=== PATIENT | male | born 1950 | race Asian ===

== ENCOUNTER → 2019-05-15 16:30 | Outpatient (BNVA) | payer MEDICARE, OTHER, SELFPAY | PROVIDERS: Family Provider Family Medicine; PCP Family Medicine; Referring Provider Family Medicine; Visit Provider Family Medicine | DX: K58.9 Irritable bowel syndrome, unspecified (principal); G47.9 Sleep disorder, unspecified; R09.81 Nasal congestion | CPT/HCPCS: 80053; 82784; 83516; 84443; 85025; 85651 ==

== ENCOUNTER → 2019-05-19 13:09 | Outpatient (BNVA) | payer MEDICARE, OTHER, SELFPAY | PROVIDERS: Family Provider Family Medicine; PCP Family Medicine; Visit Provider Family Medicine | DX: K58.9 Irritable bowel syndrome, unspecified (principal) | CPT/HCPCS: G0328 ==

== ENCOUNTER 2019-06-17 11:00 | Outpatient (CLI) | payer MEDICARE, OTHER, SELFPAY | END 2019-06-17 11:01 | disposition home or self-care (01) | LOC: SLEEP 06-18 10:15 | PROVIDERS: Family Provider Family Medicine; PCP Family Medicine; Visit Provider Family Medicine | DX: G47.10 Hypersomnia, unspecified (principal); R53.83 Other fatigue | CPT/HCPCS: G0399 ==

== ENCOUNTER 2019-06-27 08:50 | Outpatient (CLI) | payer MEDICARE, OTHER, SELFPAY ==
--- NOTE | 2019-06-27 08:00 | US_ITS ---
WS: [id number] Abdomen ultrasound, 06/27/2019 Clinical Data: liver enlargement Comparison: None. Findings: The pancreas shows no cyst, pseudocyst or evidence of pancreatitis, but it was partly obscured by ove rlying bowel gas. The liver shows no cysts, masses or dilated intrahepatic ducts. The liver showed fatty infiltration a nd measured 15.18 cm. The gallbladder has no stones or sludge. The wall measures 2.3 mm with no pericholecystic fluid. The common bile duct is 5.2 mm and no intraductal abnormalities are noted. There was an area of focal fat adjacent to the gallbladder wall. The right kidney is 11.9 cm. No cysts, masses or hydronephrosis is seen. The left kidney is 11.1 cm. No cysts, masses or hydronephrosis is seen. The abdominal aorta is not dilated and the inferior vena cava has normal flow. No vascular abnormalit ies are seen. The spleen measures 11.3 cm and there are no intrasplenic masses are capsular abnormalities. US/US abdomen complete* [id number] Impression: Negative abdomen ultrasound.
== END 2019-06-27 08:51 | disposition home or self-care (01) ==
LOC: RAD 08:57
PROVIDERS: Family Provider Family Medicine; PCP Family Medicine; Visit Provider Family Medicine
DX: R16.0 Hepatomegaly, not elsewhere classified (principal)
CPT/HCPCS: 76700

== ENCOUNTER → 2019-09-17 09:32 | Outpatient (BNVA) | payer MEDICARE, OTHER, SELFPAY | PROVIDERS: Family Provider Family Medicine; PCP Family Medicine; Visit Provider Family Medicine | DX: E11.9 Type 2 diabetes mellitus without complications (principal); Z79.4 Long term (current) use of insulin; F41.8 Other specified anxiety disorders | CPT/HCPCS: 80053; 80061; 83036; 85025 ==

== ENCOUNTER 2019-10-20 13:31 | Outpatient (CLI) | payer MEDICARE, OTHER, SELFPAY ==
--- NOTE | 2019-10-20 13:38 | XR_ITS ---
WS: [id number] KNEE RIGHT TECHNIQUE: 3 views of the right knee CLINICAL INFORMATION: right knee pain COMPARISON: None. FINDINGS: Normal anatomic alignment. Mild degenerative arthritis right knee. Chondrocalcinosis. Hypertrophic ch anges along the joint line. Vascular calcification. Hypertrophic patella. Mild soft tissue edema. XR/XR knee RT 3V* [id number] IMPRESSION: 1. Mild degenerative arthritis with medial and lateral compartment narrowing. 2. Chondrocalcinosis. 3. Hypertrophic patella. 4. No acute fractures.
== END 2019-10-20 13:32 | disposition home or self-care (01) ==
LOC: RADWPI 13:35
PROVIDERS: Family Provider Family Medicine; PCP Family Medicine; Visit Provider Family Medicine
DX: M25.561 Pain in right knee (principal); M17.11 Unilateral primary osteoarthritis, right knee; M11.261 Other chondrocalcinosis, right knee
CPT/HCPCS: 73562

== ENCOUNTER → 2020-02-02 08:46 | Outpatient (BNVA) | payer MEDICARE, OTHER, SELFPAY | PROVIDERS: Family Provider Family Medicine; PCP Family Medicine; Visit Provider Psychiatry & Neurology Psychiatry | DX: F41.8 Other specified anxiety disorders (principal); F33.1 Major depressive disorder, recurrent, moderate; F41.1 Generalized anxiety disorder | CPT/HCPCS: 99204 ==

== ENCOUNTER → 2020-02-18 09:21 | Outpatient (BNVA) | payer MEDICARE, OTHER, SELFPAY | PROVIDERS: Family Provider Family Medicine; PCP Family Medicine; Visit Provider Family Medicine | DX: E11.9 Type 2 diabetes mellitus without complications (principal); Z79.4 Long term (current) use of insulin; E78.5 Hyperlipidemia, unspecified; I10 Essential (primary) hypertension | CPT/HCPCS: 80053; 80061; 82043; 83036; 85025; 87086 ==

== ENCOUNTER → 2020-03-04 07:54 | Outpatient (BNVA) | payer MEDICARE, OTHER, SELFPAY | PROVIDERS: Family Provider Family Medicine; PCP Family Medicine; Visit Provider Psychiatry & Neurology Psychiatry | DX: F41.1 Generalized anxiety disorder (principal); F33.1 Major depressive disorder, recurrent, moderate | CPT/HCPCS: 99213 ==

== ENCOUNTER → 2020-05-13 10:32 | Outpatient (BNVA) | payer MEDICARE, OTHER, SELFPAY | PROVIDERS: Family Provider Family Medicine; PCP Family Medicine; Visit Provider Psychiatry & Neurology Psychiatry | DX: F41.1 Generalized anxiety disorder (principal); F33.1 Major depressive disorder, recurrent, moderate | CPT/HCPCS: 99213 ==

== ENCOUNTER → 2020-05-20 08:55 | Outpatient (BNVA) | payer MEDICARE, OTHER, SELFPAY | PROVIDERS: Family Provider Family Medicine; PCP Family Medicine; Visit Provider Family Medicine | DX: E11.9 Type 2 diabetes mellitus without complications (principal); Z79.4 Long term (current) use of insulin; G25.81 Restless legs syndrome | CPT/HCPCS: 80053; 82728; 83036; 83550; 85025 ==

== ENCOUNTER → 2020-06-23 08:07 | Outpatient (BNVA) | payer MEDICARE, OTHER, SELFPAY | PROVIDERS: Family Provider Family Medicine; PCP Family Medicine; Visit Provider Psychiatry & Neurology Psychiatry | DX: F41.1 Generalized anxiety disorder (principal); F33.1 Major depressive disorder, recurrent, moderate | CPT/HCPCS: 99213 ==

== ENCOUNTER → 2020-08-11 14:53 | Outpatient (BNVA) | payer MEDICARE, OTHER, SELFPAY | PROVIDERS: Family Provider Family Medicine; PCP Family Medicine; Referring Provider Family Medicine; Visit Provider Specialist | DX: M79.642 Pain in left hand (principal); M79.641 Pain in right hand; M19.042 Primary osteoarthritis, left hand; M19.041 Primary osteoarthritis, right hand | CPT/HCPCS: 73130 ==

== ENCOUNTER → 2020-08-16 08:29 | Outpatient (BNVA) | payer MEDICARE, OTHER, SELFPAY | PROVIDERS: Family Provider Family Medicine; PCP Family Medicine; Visit Provider Specialist | DX: Z01.812 Encounter for preprocedural laboratory examination (principal); Z20.822 Contact with and (suspected) exposure to COVID-19 | CPT/HCPCS: 87635 ==

== ENCOUNTER 2020-08-20 06:42 | Day surgery (SDC) | payer MEDICARE, OTHER, SELFPAY ==
[2020-08-16 17:01] VITALS: BMI 29.0
--- NOTE | 2020-08-20 07:03 | P.HPUD_ITS ---
Surgery/Procedure H&P Update DATE OF PROCEDURE: August 20, 2020 DATE H&P PERFORMED: 08/12/20 H&P UPDATE INFORMATION: I have reviewed H&P completed within last 30 days, I have examined patient prior to procedure, No changes to prior documentation and H&P is in [facility] [place] EMR on date indicated PREOP DIAGNOSIS: Left index trigger finger PLANNED PROCEDURE: Operation Date: 08/20/20 08:15 Proposed Procedures p Left Index Trigger Finger Release 39286 M65.30(Left) - Nicole Villa MD Related Problem List Diagnoses (1) Trigger finger, left index finger:
[2020-08-20 07:05] VITALS: BP 131/74; PULSE 77; RESP 18; TEMP 37; O2SAT 97
[2020-08-20 07:19] LABS: Glucose Point of Care 168 mg/dL (70-110)
[2020-08-20] MEDS: sodium chloride 0.9% 1,000 ML 30 ML IV (07:24)
[2020-08-20] MEDS: acetaminophen 1,000 MG/100 ML PIGGYBACK 400 MG IV (07:25)
[2020-08-20] MEDS: CELEcoxib 200 mg Capsule 400 MG PO (07:27)
--- NOTE | 2020-08-20 07:41 | ANES.PREANE2 ---
Pre-Anesthetic Assessment Pre-Anesthetic Assessment: Height/Weight: Height 1.68 m Weight 81.647 kg Temp Pulse Resp BP Pulse Ox 98.6 F 77 18 131/74 97 08/20/20 07:05 08/20/20 07:05 08/20/20 07:05 08/20/20 07:05 08/20/20 07:05 Preop Diagnosis: Left index trigger finger Proposed Procedure: Operation Date: 08/20/20 08:15 Proposed Procedures p Left Index Trigger Finger Release 21930 M65.30(Left) - Nicole Villa MD Was Beta Belinda taken within 24 hours: N/A Was Clonidine taken within 24 hours: N/A Last intake: Intake Last Liquid Date 08/19/20 Last Liquid Time 16:30 Last Solid Date 08/19/20 Last Solid Time 16:30 Social: Social History: No alcohol and No tobacco Exam: Pre-Anes Outpt Exam: alert, oriented x 3, clear to auscultation bilaterally and regular rate & rhythm Airway: Submandibular: WNL Cervical ROM: WNL MP: 2 Dentition: Full Metabolic: Metabolic: DM and Morbid obesity Musc/skel: Musc/skel: Lower Back Pain Anesthetic Plan: ASA status: 3 Anesthesia: MAC and Regional (specify below) (Darnell clinton) Risk of > 500 ml blood loss (7ml/kg in children): No Meds/Allergies Current Medications: Current Medications Generic Name Dose Route Start Last Admin Trade Name Freq PRN Reason Stop Dose Admin Sodium Chloride 1,000 mls @ 30 ml s/hr 08/20/20 06:45 08/20/20 07:24 Sodium Chloride 0.9% IV 08/21/20 06:44 30 mls/hr .Q24H FRED Administration PFSH Anesthesia PFSH: Medical History Benign essential HTN Dyslipidemia Fusion of lumbar spine Hypertension Insomnia Trigger finger Type 2 diabetes mellitus, with long-term current use of insulin Surgical History History of back surgery History of thumb surgery Family History Other Dementia Diabetes Social History Smoking and tobacco status: never smoked Second hand smoke exposure: No Alcohol intake: current Alcohol intake frequency: holidays/special occasions only Current gender identity: Male Agree to transfusion: Yes (06/11/2019) Data Anesthesia Other Labs: Laboratory Results - last 48 hr 08/20/20 07:15 POC Glucose 168 H Cardiac Studies: No Data to Display
[2020-08-20 09:01] VITALS: BP 157/97; PULSE 70; RESP 18; TEMP 36.4; O2SAT 100
[2020-08-20 09:05] VITALS: BP 167/73; PULSE 62; RESP 16; O2SAT 98
[2020-08-20 09:11] VITALS: BP 164/77; PULSE 65; RESP 18; TEMP 36.2; O2SAT 98
[2020-08-20 09:16] VITALS: BP 153/61; PULSE 64; RESP 18; TEMP 36.2; O2SAT 97
--- NOTE | 2020-08-20 09:30 | P.OP_ITS ---
Operative Report Date of procedure: August 20, 2020 Pre-op Diagnosis: Left index trigger finger Post-op diagnosis: same Procedure Done: Left index trigger finger release Specimens removed/disposition: None Pathology: none sent Surgeon: Nicole Villa Commercial Production Editor: None Anesthesia: MAC (with [place] Block) Estimated blood loss (mL): 0 Tourniquet time (min): 28 Tourniquet time: 250 mmHg IV fluids (mL): 700 Urine output (mL): 0 Urine output: No Gonzalez Complications: None Findings: Triggering Condition: stable Disposition: PACU (Then to same day for discharge home) Brief History: This 70-year-old gentleman presented with complaints of index finger triggering in the left hand. He previously has had trigger thumb release, so he understands the risks and benefits of the surgical procedure. He wishes to proceed. Procedure: Patient was brought to the operating theater. He was placed on the operating room table. A [place] block was administered without difficulty. Patient tolerated it well. Ancef 2 g as well as Ofrimev 1 g was administered pre-operatively. A tourniquet was placed high on the arm and was elevated for the [place] block. This followed exsanguination of the arm. Tourniquet time was 28 minutes at 250 mmHg. Surgical pause was performed prior to commencement of the surgical procedure. At the time of the surgical pause we identified the site and side of surgery. We also identified the patient's identity and appropriate administration of IV antibiotics. Following the surgical pause, an incision was made along the distal palmar crease beneath the index finger. Dissection continued through the skin to the subcutaneous tissues using a scalpel. Blunt dissection was then utilized to spread soft tissues and allow access to the A1 perri. It was then incised longitudinally and sharply using a knife. This was accomplished without difficulty and atraumatically. Once the A1 perri was released, tendons were brought up out of the wound and evaluated. There were no gross masses on the tendons. Tendons were returned to normal position. We then irrigated the wound and subsequently closed it with 3-0 nylon with an interrupted mattress type suture. Following closure of the wound, the wound was injected with bupivacaine plain into the subcutaneous tissues as a local anesthetic. Sterile dressing was then placed consisting of OpSite, fluffed fluffs, sterile soft roll, and an Luis wrap. The patient was returned to recovery in satisfactory condition. He will be discharged home to follow-up with me in the office. There were no complications and no specimens. Associated Problem List Diagnoses (1) Trigger finger, left index finger:
[2020-08-20 09:32] VITALS: BP 164/72; PULSE 72; RESP 18; TEMP 36.2; O2SAT 97
--- NOTE | 2020-08-20 16:22 | ANE.PACU2 ---
Inpatient post-anesthesia follow up: Airway intact: Yes Vital signs: Temperature 97.2 F Pulse Rate 72 Respiratory Rate 18 Blood Pressure 164/72 Pulse Oximetry 97 Oxygen Delivery Me thod Room Air Oxygen Flow Rate Fraction of Inspir ed Oxygen Hydration adequate: Yes Nausea and vomiting: No Pain level: 1 Mental status: Baseline
== END 2020-08-20 09:44 | disposition home or self-care (01) ==
PROVIDERS: PCP Family Medicine; Visit Provider Specialist
PROC: (CPT 26055; principal; 2020-08-20 08:05)
DX: M65.322 Trigger finger, left index finger (principal); E11.9 Type 2 diabetes mellitus without complications; E66.01 Morbid (severe) obesity due to excess calories; Z68.29 Body mass index [BMI] 29.0-29.9, adult; I10 Essential (primary) hypertension; E78.5 Hyperlipidemia, unspecified; Z95.5 Presence of coronary angioplasty implant and graft; Z79.4 Long term (current) use of insulin
CPT/HCPCS: 26055; 36416; 82962; 96365; J0690; J2250; J3490; J7030

== ENCOUNTER → 2020-08-31 09:10 | Outpatient (BNVA) | payer MEDICARE, OTHER, SELFPAY | PROVIDERS: PCP Family Medicine; Visit Provider Family Medicine | DX: E11.9 Type 2 diabetes mellitus without complications (principal); E78.5 Hyperlipidemia, unspecified; I10 Essential (primary) hypertension; Z79.4 Long term (current) use of insulin | CPT/HCPCS: 80053; 80061; 83036 ==

== ENCOUNTER → 2020-09-13 09:27 | Outpatient (BNVA) | payer MEDICARE, OTHER, SELFPAY | PROVIDERS: PCP Family Medicine; Visit Provider Psychiatry & Neurology Psychiatry | DX: F41.1 Generalized anxiety disorder (principal); F33.1 Major depressive disorder, recurrent, moderate | CPT/HCPCS: 99214 ==

== ENCOUNTER → 2021-02-10 15:38 | Outpatient (BNVA) | payer MEDICARE, OTHER, SELFPAY | PROVIDERS: PCP Family Medicine; Visit Provider Psychiatry & Neurology Psychiatry | DX: F41.1 Generalized anxiety disorder (principal); F33.1 Major depressive disorder, recurrent, moderate | CPT/HCPCS: 99214 ==

== ENCOUNTER → 2021-03-01 09:24 | Outpatient (BNVA) | payer MEDICARE, OTHER, SELFPAY | PROVIDERS: PCP Family Medicine; Visit Provider Family Medicine | DX: E11.9 Type 2 diabetes mellitus without complications (principal); Z79.4 Long term (current) use of insulin; E78.5 Hyperlipidemia, unspecified; I10 Essential (primary) hypertension | CPT/HCPCS: 80053; 80061; 82043; 83036; 85025 ==

== ENCOUNTER → 2021-05-06 09:52 | Outpatient (BNVA) | payer MEDICARE, OTHER, SELFPAY | PROVIDERS: PCP Family Medicine; Visit Provider Psychiatry & Neurology Psychiatry | DX: F41.1 Generalized anxiety disorder (principal); F33.1 Major depressive disorder, recurrent, moderate | CPT/HCPCS: 99214 ==

== ENCOUNTER → 2021-05-31 08:30 | Outpatient (BNVA) | payer MEDICARE, OTHER, SELFPAY | PROVIDERS: PCP Family Medicine; Visit Provider Family Medicine | DX: E11.9 Type 2 diabetes mellitus without complications (principal); Z79.4 Long term (current) use of insulin | CPT/HCPCS: 83036 ==

== ENCOUNTER → 2021-08-18 12:42 | Outpatient (BNVA) | payer MEDICARE, OTHER, SELFPAY | PROVIDERS: PCP Family Medicine; Visit Provider Psychiatry & Neurology Psychiatry | DX: F41.1 Generalized anxiety disorder (principal); F33.1 Major depressive disorder, recurrent, moderate | CPT/HCPCS: 99213 ==

== ENCOUNTER → 2021-08-30 08:11 | Outpatient (BNVA) | payer MEDICARE, SELFPAY | PROVIDERS: PCP Family Medicine; Visit Provider Family Medicine | DX: E11.9 Type 2 diabetes mellitus without complications (principal); Z79.4 Long term (current) use of insulin; R35.1 Nocturia; I10 Essential (primary) hypertension; E78.5 Hyperlipidemia, unspecified | CPT/HCPCS: 80053; 83036; 84153 ==

== ENCOUNTER → 2022-02-15 12:34 | Outpatient (BNVA) | payer MEDICARE, OTHER, SELFPAY | PROVIDERS: PCP Family Medicine; Visit Provider Family Medicine | DX: R19.7 Diarrhea, unspecified (principal) | CPT/HCPCS: 87506 ==

== ENCOUNTER → 2022-02-28 09:19 | Outpatient (BNVA) | payer MEDICARE, SELFPAY | PROVIDERS: PCP Family Medicine; Visit Provider Family Medicine | DX: I10 Essential (primary) hypertension (principal); E78.5 Hyperlipidemia, unspecified; E11.9 Type 2 diabetes mellitus without complications; R68.82 Decreased libido; R53.83 Other fatigue; Z79.4 Long term (current) use of insulin | CPT/HCPCS: 80053; 80061; 83036; 84403; 84443; 85025 ==

== ENCOUNTER 2022-08-30 09:09 | Outpatient (CLI) | payer MEDICARE, SELFPAY ==
--- NOTE | 2022-08-30 10:40 | XR_ITS ---
WS: [id number] XR hip RT 2-3V wo/w pel* [id number] REASON FOR EXAM: right hip pain FINDINGS: No fracture or focal bone lesion. Significant narrowing of the joint space with moderate subchondral sclerosis and osteophytosis of the acetabulum. Significant osteophytosis of the femoral head. XR/XR hip RT 2-3V wo/w pel* [id number] IMPRESSION: Significant osteoarthritis of the right hip.
--- NOTE | 2022-08-30 10:40 | XR_ITS ---
WS: [id number] XR cervical spine 3V* [id number] REASON FOR EXAM: neuropathy of bilateral hands FINDINGS: Mild reversal of the normal lordosis of the cervical spine. Normal odontoid. No significant focal vertebral body abnormality. Mild narrowing of the intervertebral disc spaces T1. Moderate anterior and uncinate osteophytosis C4- T1. 2.5 mm of anterolisthesis of C3 in relation to C4. XR/XR cervical spine 3V* [id number] IMPRESSION: Degenerative spondylosis as above.
[2022-08-30 11:14] LABS: Testosterone Total 142.4 ng/dL (193-740)
== END 2022-08-30 09:10 | disposition home or self-care (01) ==
PROVIDERS: PCP Family Medicine; Visit Provider Family Medicine
DX: E11.9 Type 2 diabetes mellitus without complications (principal); Z79.4 Long term (current) use of insulin; R79.89 Other specified abnormal findings of blood chemistry; R35.1 Nocturia; M16.11 Unilateral primary osteoarthritis, right hip; G54.2 Cervical root disorders, not elsewhere classified; M47.892 Other spondylosis, cervical region
CPT/HCPCS: 36415; 72040; 73502; 80053; 83036; 84153; 84403

== ENCOUNTER → 2022-10-09 08:24 | Outpatient (BNVA) | payer MEDICARE, SELFPAY | PROVIDERS: PCP Family Medicine; Referring Provider Family Medicine; Visit Provider Specialist | DX: M16.11 Unilateral primary osteoarthritis, right hip (principal) | CPT/HCPCS: 73502; 99214 ==

== ENCOUNTER → 2022-10-17 11:09 | Outpatient (BNVA) | payer MEDICARE, SELFPAY | PROVIDERS: PCP Family Medicine; Visit Provider Orthopaedic Surgery | DX: M47.22 Other spondylosis with radiculopathy, cervical region (principal); M54.9 Dorsalgia, unspecified | CPT/HCPCS: 72110; 99204 ==

== ENCOUNTER 2022-11-17 09:01 | Outpatient (CLI) | payer MEDICARE, SELFPAY ==
--- NOTE | 2022-11-17 09:30 | MR_ITS ---
WS: [id number] MRI CERVICAL SPINE NONCONTRAST TECHNIQUE: Sagittal T1, T2 and STIR imaging. Axial T2, gradient, and fiesta imaging. CLINICAL INFORMATION: neck pain COMPARISON: None. FINDINGS: Straightening of the normal cervical lordosis. Mild disc bulging C3-C4 C4-C5 and C5-C6. Slight alisha listhesis C3 on C4 and C4 on C5. Shallow central protrusion T1-T2. C2-C3: Mild facet arthropathy. Spinal canal and foramen are patent. C3-C4: Disc osteophyte complex with endplate ridging. Slight indentation on cervical cord. Mild centr al canal stenosis. Moderate facet arthropathy. Mild bilateral bony foraminal narrowing. C4-C5: Shallow central disc protrusion with slight indentation on cervical cord. Mild central canal s tenosis. Moderate facet arthropathy. Mild bilateral foraminal narrowing. C5-C6: Disc osteophyte complex with endplate ridging. Mild central canal stenosis. Moderate LEFT and no significant RIGHT foraminal narrowing. C6-C7: Mild disc bulging with slight effacement of ventral thecal sac. Mild LEFT and no RIGHT foramin al narrowing. C7-T1: Mild to moderate LEFT and no significant RIGHT foraminal narrowing. Spinal canal is patent. T1-T2: Slight anterolisthesis. Small central disc herniation with slight contact of the thoracic cord . Mild central canal stenosis. Mild to moderate LEFT and no significant RIGHT foraminal narrowing. Mo derate facet arthropathy. Visualized brain stem structures: Normal. Prevertebral soft tissues: Normal. MR/MR cervical spin wo con* [id number] IMPRESSION: 1. Straightening of the normal cervical lordosis with slight anterolisthesis C 3 on C4 and C4 on C5. 2. Mild central canal stenosis C3-C4, C4-C5, C5-C6. 3. Small central disc herniation T1-T2 with mild central canal stenosis. 4. Moderate LEFT C5-C6 bony foraminal narrowing. 5. Mild to moderate bony foraminal narrowing LEFT C3-C4, LEFT C4-C5 and LEFT C 6-C7.
== END 2022-11-17 09:02 | disposition home or self-care (01) ==
PROVIDERS: PCP Family Medicine; Visit Provider Orthopaedic Surgery
DX: M48.02 Spinal stenosis, cervical region (principal); M51.24 Other intervertebral disc displacement, thoracic region; M48.04 Spinal stenosis, thoracic region; M47.812 Spondylosis without myelopathy or radiculopathy, cervical region
CPT/HCPCS: 72141

== ENCOUNTER → 2022-12-07 09:52 | Outpatient (BNVA) | payer MEDICARE, SELFPAY | PROVIDERS: PCP Family Medicine; Visit Provider Physician Assistant | DX: M47.22 Other spondylosis with radiculopathy, cervical region (principal); M47.812 Spondylosis without myelopathy or radiculopathy, cervical region | CPT/HCPCS: 72040; 99213 ==

== ENCOUNTER 2022-12-21 07:19 | Outpatient (CLI) | payer MEDICARE, SELFPAY ==
--- NOTE | 2022-12-21 08:00 | CT_ITS ---
WS: [id number] CT CERVICAL SPINE TECHNIQUE: Noncontrast CT of the cervical spine with coronal and sagittal reformatted images. CLINICAL INFORMATION: nECK PAIN COMPARISON: MRI 11/17/2022 DLP: 358.[address] scans at [facility] use at least one of these dose optimization techniques: automated e xposure control; mA and/or kV adjustment per patient size (includes targeted exams where dose is matc hed to clinical indication); or iterative reconstruction. FINDINGS: Straightening of the normal cervical lordosis. Moderate spondylitic changes cervical spine. Ossificat ion of the nuchal ligament. Anterior hypertrophic changes mid and lower cervical spine. Slight alisha listhesis C3 on C4. C2-C3: Mild disc osteophytic ridging. Moderate facet arthropathy. Spinal canal and foramen are patent . C3-C4: Slight anterolisthesis. Disc osteophyte complex eccentric to the LEFT. Mild central canal sten osis. Moderate facet arthropathy. Mild RIGHT and no significant LEFT foraminal narrowing. C4-C5: Disc osteophyte complex with endplate ridging. Mild central canal stenosis with slight indenta tion on the cervical cord. Tiny central protrusion. Mild RIGHT and no significant LEFT foraminal narr owing. Moderate facet arthropathy. C5-C6: Disc osteophyte complex with endplate ridging. Moderate LEFT and mild RIGHT bony foraminal dajuan rowing. Moderate facet arthropathy and uncovertebral joint hypertrophy. C6-C7: Disc osteophyte complex with endplate ridging. Mild LEFT greater than RIGHT bony foraminal dajuan rowing. Mild to moderate facet arthropathy. Spinal canal is patent. C7-T1: No significant disc bulging. Spinal canal and foramen are patent. Visualized posterior nasopharynx: Normal. Prevertebral soft tissues: Normal. Intracranial vascular calcification. Moderate carotid bulb calcification LEFT greater than RIGHT. Thi s could be further evaluated with ultrasound. Lung apices appear well aerated. IMPRESSION: 1. Moderate spondylitic changes cervical spine with straightening of the normal cervical lordosis. S light anterolisthesis C3 on C4. 2. Mild central canal stenosis C3-C4 and C4-C5. Small central protrusion C4-5 with slight indentatio n on the cervical cord. 3. Mild to moderate bony foraminal narrowing worse at RIGHT C3-C4, RIGHT C4-C5, LEFT C5-C6 and LEFT C6-7. 4. Multilevel facet arthropathy worse at C3-C4 C4-C5 and C5-C6. 5. Dense carotid bulb calcification. This could be further evaluated ultrasound.
== END 2022-12-21 07:20 | disposition home or self-care (01) ==
PROVIDERS: PCP Family Medicine; Visit Provider Physician Assistant
DX: M47.22 Other spondylosis with radiculopathy, cervical region (principal); M48.02 Spinal stenosis, cervical region; I65.29 Occlusion and stenosis of unspecified carotid artery
CPT/HCPCS: 72125

== ENCOUNTER → 2022-12-26 09:45 | Outpatient (BNVA) | payer MEDICARE, SELFPAY | PROVIDERS: PCP Family Medicine | DX: R79.89 Other specified abnormal findings of blood chemistry (principal) | CPT/HCPCS: 84403 ==

== ENCOUNTER → 2023-01-02 07:42 | Outpatient (BNVA) | payer MEDICARE, SELFPAY | PROVIDERS: PCP Family Medicine; Visit Provider Orthopaedic Surgery | DX: M47.12 Other spondylosis with myelopathy, cervical region | CPT/HCPCS: 99214 ==

== ENCOUNTER → 2023-02-05 12:38 | Outpatient (BNVA) | payer MEDICARE, SELFPAY | PROVIDERS: PCP Family Medicine; Visit Provider Specialist | DX: M16.11 Unilateral primary osteoarthritis, right hip (principal) | CPT/HCPCS: 99214 ==

== ENCOUNTER → 2023-03-01 11:26 | Outpatient (BNVA) | payer MEDICARE, SELFPAY | PROVIDERS: PCP Family Medicine; Visit Provider Family Medicine | DX: E11.9 Type 2 diabetes mellitus without complications (principal); Z79.4 Long term (current) use of insulin | CPT/HCPCS: 80053; 80061; 82043; 83036; 85025 ==

== ENCOUNTER → 2023-03-05 11:46 | Outpatient (BNVA) | payer MEDICARE, SELFPAY | PROVIDERS: PCP Family Medicine; Referring Provider Specialist; Visit Provider Family Medicine | DX: Z01.818 Encounter for other preprocedural examination (principal) | CPT/HCPCS: 81000 ==

== ENCOUNTER → 2023-03-12 08:39 | Outpatient (BNVA) | payer MEDICARE, SELFPAY | PROVIDERS: PCP Family Medicine; Visit Provider Podiatrist Foot & Ankle Surgery | DX: B35.1 Tinea unguium (principal); G62.9 Polyneuropathy, unspecified; E11.42 Type 2 diabetes mellitus with diabetic polyneuropathy; Z79.4 Long term (current) use of insulin; Z79.84 Long term (current) use of oral hypoglycemic drugs | CPT/HCPCS: 11721; 99203 ==

== ENCOUNTER 2023-03-15 15:49 | Observation (INO) | payer MEDICARE, SELFPAY ==
[2023-03-15] VITALS (17 sets, daily range): BP systolic 82–171; BP diastolic 44–108; PULSE 74–100; RESP 12–22; TEMP 36.1–36.8; O2SAT 93–100; BMI 30.7; BMI 31.6
[2023-03-15] MEDS: sodium chloride 0.9% 1,000 ML 30 ML IV (09:34)
[2023-03-15 10:06] LABS: Glucose Point of Care 168 mg/dL (70-110)
--- NOTE | 2023-03-15 10:53 | ANES.PREANE2 ---
Pre-Anesthetic Assessment Height/Weight: Height 1.65 m Weight 83.915 kg Temp Pulse Resp BP Pulse Ox O2 Del Method 97.0 F L 74 18 171/83 95 Room Air 03/15/23 09:51 03/15/23 09:51 03/15/23 09:51 03/15/23 09:51 03/15/23 09:51 03/15/23 10:05 Operation Date: 03/15/23 11:20 Proposed Procedures p Total Hip Arthroplasty: RIGHT TOTAL HIP ARTHROPLASTY(Right) - Nicole Villa MD Familial anesthetic complications: None Was Beta Belinda taken within 24 hours: N/A Was Clonidine taken within 24 hours: N/A Last intake: Intake Last Liquid Date 03/14/23 Last Liquid Time 22:00 Last Solid Date 03/14/23 Last Solid Time 18:00 Social No alcohol and No tobacco Exam alert, oriented x 3, clear to auscultation bilaterally and regular rate & rhythm Airway Mallampati: Class II Dentition: full Metabolic Diabetes Mellitus and Hyperlipidemia Anesthetic Plan ASA status: 2 Anesthesia: Regional (specify below) Risk of > 500 ml blood loss (7ml/kg in children): No Medications/Allergies Home Medications Medication Instructions Recorded Confirmed Last Taken Type insulin syringe-needle U-100 0.3 #100 ea 02/28/22 03/12/23 Unknown Rx mL 30 gauge x 5/16 ([facility] Syringes) insulin lispro 100 unit/mL See Rx Instructions SUBCUT BID 08/29/22 03/14/23 03/14/23 Rx subcutaneous pen (Humalog KwikPen #135 mL (U-100) Insulin) tramadol 50 mg tablet 50 mg PO TID PRN pain #90 tabs 10/18/22 03/15/23 Unknown Rx testosterone cypionate 200 mg/mL 200 mg SUBCUT .q 14 days #2 mL 01/05/23 03/14/23 03/07/23 Rx intramuscular oil trazodone 100 mg tablet 400 mg PO .HS PRN insomnia #360 01/26/23 03/14/23 03/14/23 Rx tabs betamethasone, augmented 0.05 % 1 applic topical BID PRN skin 03/01/23 03/15/23 Unknown Rx topical ointment irritation #50 grams sildenafil (pulm.hypertension) 20 See Rx Instructions PO .COMPLEX 03/01/23 03/15/23 Unknown Rx mg tablet #30 tabs insulin detemir U-100 100 unit/mL 80 unit SUBCUT DAILY 03/05/23 03/14/23 03/14/23 History (3 mL) subcutaneous pen (Levemir FlexTouch U-100 Insulin) canagliflozin 100 mg tablet 100 mg PO DAILY #30 tabs 03/06/23 03/14/23 03/14/23 Rx (Invokana) metformin 500 mg tablet 500 mg PO BID #60 tabs 03/06/23 03/14/23 03/14/23 Rx atorvastatin 80 mg tablet 80 mg PO DAILY 03/14/23 03/14/23 03/14/23 History duloxetine 60 mg capsule,delayed 120 mg PO DAILY 03/14/23 03/14/23 03/14/23 History release valsartan 160 1 tab PO DAILY 03/14/23 03/14/23 03/14/23 History mg-hydrochlorothiazide 25 mg tablet Allergies Allergy/AdvReac Type Severity Reaction Status Date / Time cat dander Allergy Severe breaksout, Verified 03/15/23 09:50 swells eyes shut bupropion [From Wellbutrin] Allergy Intermediate N & V, Verified 03/15/23 09:50 lack of energy. [facility] Anesthesia Medical History Benign essential HTN COVID-19 Dyslipidemia Fusion of lumbar spine Hypertension Insomnia Trigger finger Type 2 diabetes mellitus, with long-term current use of insulin Surgical History History of back surgery History of thumb surgery Family History Other Dementia Diabetes Social History Smoking and tobacco/nicotine status: never used tobacco/nicotine Second hand smoke exposure: No Alcohol intake: current Alcohol intake frequency: holidays/special occasions only Alcohol type: beer and hard liquor Substance/Drug Use: former Current gender identity: Male Agree to transfusion: Yes (06/11/2019) Data Anesthesia Cardiac Studies: No Data to Display
--- NOTE | 2023-03-15 11:17 | P.HPUD_ITS ---
Surgery/Procedure H&P Update DATE OF PROCEDURE: March 15, 2023 DATE H&P PERFORMED: 03/05/23 H&P UPDATE INFORMATION: I have reviewed H&P completed within last 30 days, I have examined patient prior to procedure, No changes to prior documentation and H&P is in [facility] EMR on date indicated PLANNED PROCEDURE: Operation Date: 03/15/23 11:20 Proposed Procedures p Total Hip Arthroplasty: RIGHT TOTAL HIP ARTHROPLASTY(Right) - Nicole Villa MD Related Problem List Diagnoses (1) Primary osteoarthritis of right hip:
[2023-03-15] MEDS: acetaminophen 1,000 MG/100 ML PIGGYBACK 400 MG IV ×2 (11:28→20:27)
[2023-03-15] MEDS: gabapentin 300 mg Capsule PO (11:28)
[2023-03-15] MEDS: CELEcoxib 200 mg Capsule 400 MG PO (11:31)
[2023-03-15] MEDS: ceFAZolin 2,000 MG in sodium chloride 0.9% (plus) 50 ML 100 MG IV ×2 (11:35→23:13)
[2023-03-15] MEDS: ceFAZolin 1,000 mg SDV 1000 MG IRRIGATION (12:40)
[2023-03-15] MEDS: vancomycin 1,000 MG SDV 1000 MG XX (12:41)
--- NOTE | 2023-03-15 14:21 | P.OP_ITS ---
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 Flexion and abductor contracture Procedure done: Right total hip arthroplasty with adductor tenotomy through separate incision Implants: The [place] total hip system with a size 52 mm by E alpha code Trident II Tritanium acetabular shell with an MDM liner size 42 mm inner diameter by E alpha code.? A size 4 Accolade II 127? neck angle hip stem with a size 28 mm x +0 mm femoral head and a buddhism MDM X3 insert size 42E Specimens removed/disposition: Bone, disposed of Surgeon: Nicole Villa MD Farm Tractor Mechanic: Katie Toure NP, whose expertise was required for patient positioning, exposure, retraction during the case, placement of the prosthesis, and placement of the prosthesis Anesthesia: General (Per ET tube, ASA 2) Estimated blood loss (mL): 200 IV fluids (mL): 1,200 Urine output (mL): 500 Complications: None Findings: Significant flexion contracture even under anesthesia. Adductor contracture. Flexion contracture of the hip. Severe degenerative osteoarthritis with large osteophytes. The hip was stable at 90 degrees of flexion with 30 degrees of abduction and 40 degrees of internal rotation. It was stable to external rotation. It was still quite tight following the surgical procedure. Condition: stable Disposition: PACU (Then to floor for postoperative rehabilitation and pain management) Brief History: This is a 72-year-old gentleman who presented to my office with complaints of severe right hip pain. While sitting in his chair, he had significant pain, however, when he bears weight, the patient's pain level became much higher. The hip pain interfered with his activities of daily living. He also was beginning to develop numbness and tingling secondary to the way that he walked. In the office, patient was evaluated. Questions were asked and answered. Consents were signed. Procedure: Patient was brought to the operating theater.? He was transferred to the operating room table and subsequently administered a general anesthesia per ET tube, ASA 2.? Following administration of adequate anesthesia, the patient was placed in full lateral position and held in position with a pegboard.? The patient's right lower extremity was then prepped and draped in usual fashion utilizing DuraPrep.? It was draped free, but this draping was quite difficult secondary to the severe contractures the patient had.? Following prepping and draping, a surgical pause was performed.? At the time of surgical pause, we identified the site and side of surgery.? We also identified the patient and preoperative surgical markings.?The patient's operative leg was compared to the opposite leg.? Confirmation was made of equipment availability.? Additionally, the patient's preoperative IV antibiotic, Ancef 2 g, and TXA administration was confirmed as well.? X-rays were also reviewed. Following the surgical pause, an incision was made centering over the patient's greater trochanter continuing proximally and distally as necessary to allow access to the hip joint.? Dissection continued through skin and soft tissues using a scalpel, and hemostasis was obtained using electrocautery. The tensor fascia marily was identified and incised longitudinally.? Sciatic nerve was identified and protected throughout the surgical procedure.? A Charnley U retractor was placed after the tensor fascia marily had been incised longitudinally, and the sciatic nerve had been identified.? The hip was internally rotated, and the piriformis muscle was identified and tagged. Piriformis muscle along with the remaining short external rotators were then incised from the posterior aspect of the hip joint.? These were retracted posteriorly.? The capsule was entered in a T-type fashion with the edges being tagged, and subsequently the hip was dislocated.? Dislocation of the hip was quite difficult secondary to large osteophytes superiorly and posteriorly on the acetabulum. Also, there was significant soft tissue contracture anteriorly. Following dislocation of the femoral head, femoral neck osteotomy was accomplished, and subsequently, the labrum was excised.? The head was measured, and reaming was begun with deepening of the acetabulum. We then evaluated the acetabulum. The femur was retracted anteriorly.? Soft tissues were retracted, and the labrum was removed further.? We then began reaming.? Once the femoral head was removed, there was noted to be significant loss of cartilage over the head with the previously noted deformity and within the acetabulum.? We reamed to a size 51 to allow for a size 52 acetabular shell.? The acetabulum was impacted into position.? The MDM liner was then impacted into position with care being taken to assure it seated appropriately.? It was noted that the acetabulum matched the bony anatomy.? The cup was noted to seat nicely and had good fixation upon impact. Attention was directed to the proximal femur.? The proximal femur was lifted out of the wound.? A canal finder was passed after the box chisel.? The reamer was used to lateralize.? We then began broaching. We broached sequentially and had excellent fit and fill with the size 4 broach. Initially, we did try with a size 5 broach, however, the leg was much too long and tight secondary to the contractures. Therefore, we placed a size 4 broach and resected further femoral neck. The size 4 broach was noted to fit quite nicely. A trial reduction was attempted with a -4 mm femoral head initially, but this was felt to not give the stability desired. Therefore, we placed the +0 mm femoral head in position, and we obtained the above-noted stabilities. Leg lengths were felt to be essentially equal, but this was difficult to evaluate secondary to the severe adductor tightness. Therefore, trial components were removed after the hip was dislocated.? The size 4 Accolade II 127? neck angle stem was impacted into position without difficulty and onto this was placed a +0 mm x 28 mm femoral head which had been assembled into the MDM insert size 42E.? With a +0 mm femoral head, we had the above-noted stability.? The stem was noted to seat nicely prior to placement of the femoral head.? The wound was copiously irrigated with 20 mL of Betadine and 500 mL of normal saline mixed together.? Subsequently, we suctioned this out and irrigated the wound copiously with lactated Ringer's.? At this time, with all components in appropriate position, the hip was reduced.? Following reduction of the prosthesis once again, we confirmed the stability of the hip.? Leg lengths were also felt to be satisfactory. Being satisfied with the prosthesis, attention was directed to closure.? Closure was accomplished with 0 Vicryl in the capsular tissues.? Piriformis was reattached with 0 Vicryl as well.? Tensor fascia marily was closed with 0 Vicryl in an interrupted fashion.? The subcutaneous tissues were closed with 2-0 Monocryl.? Vancomycin powder and a Gelfoam thrombin mixture was placed into the wound as well.? The skin was closed with a running 3-0 Monocryl followed by Dermabond Cristo followed by OpSite.? The patient was placed in an abduction pillow. Following this closure, the patient was turned onto his back. The groin area over the adductor tendon was palpated. The tendon was noted to be quite tight. Therefore, this area was prepped, and a 12 blade was used to perform a adductor tenotomy through separate incision. Following this, the leg was noted to abduct much easier, and stability was not tested at this time. A sterile 4 x 4 was placed in the area and the patient was returned to recovery room in a satisfactory condition for postoperative rehabilitation and pain management. He will be discharged to the floor. There were no complications and no specimens. Related Problem List Diagnoses (1) Primary osteoarthritis of right hip: (2) Contracture of adductor muscle of hip: (3) Flexion contracture of right hip:
--- NOTE | 2023-03-15 14:52 | XR_ITS ---
WS: [id number] Exam: XR pelvis 1-2V* [id number] Date/Time of Exam: 03/15/2023 2:52 PM Reason For Exam: S/P MORALES Limited AP view of the lower pelvis shows a RIGHT total hip replacement. Postoperative changes in the adjacent soft tissues. A Gonzalez catheter is noted. IMPRESSION: 1. RIGHT total hip arthroplasty.
[2023-03-15] MEDS: HYDROmorphone 1 mg/mL INJ 1 mL 0.5 MG IVP (15:20)
[2023-03-15] MEDS: midazolam 1 mg/mL INJ 2 mL 2 MG IVP (15:23)
[2023-03-15] MEDS: oxyCODONE 5 mg IR Tab/Cap PO (16:28)
[2023-03-15 17:38] LABS: Glucose Point of Care 343 mg/dL (70-110)
[2023-03-15] MEDS: insulin lispro 100 unit/1 mL SUBCUT ×2 (17:42→20:45)
[2023-03-15] MEDS: iron polysaccharide complex 150 mg Capsule PO (17:42)
[2023-03-15] MEDS: HYDROcodone-acetaminophen 10-325 mg Tablet 1 TAB PO ×2 (17:43→21:37)
[2023-03-15] MEDS: metformin 500 mg Tablet PO (17:43)
[2023-03-15] MEDS: sennosides-docusate Tablet 2 TAB PO (17:43)
[2023-03-15] MEDS: calcium carbonate 500 mg Chew Tablet 1000 MG PO (17:43)
--- NOTE | 2023-03-15 18:14 | PC.NURSE ---
SHIFT SUMMARY Patient was in a lot of pain when arriving to the floor. This nurse tried medication and position changes. Dr. Villa notified and pain medication changed to hydrocodone. Patient now sitting up more comfortably in the bed, eating ice cream, with at bedside. Surgical incision c/d/i. Dr. Villa updated at 1800.
[2023-03-15] MEDS: chlorhexidine gluconate 0.12% Btl 473 mL 30 ML MUCOUS MEM (20:44)
[2023-03-15] MEDS: tranexamic acid 1,000 MG/100 ML PREMIX 12.5 MG IV (20:44)
[2023-03-15 20:48] LABS: Glucose Point of Care 248 mg/dL (70-110)
[2023-03-15] MEDS: trazodone 100 mg Tablet 400 MG PO (21:37)
[2023-03-15] MEDS: CELEcoxib 200 mg Capsule PO (23:13)
[2023-03-16] MEDS: HYDROcodone-acetaminophen 10-325 mg Tablet 1 TAB PO ×2 (02:39→11:07)
[2023-03-16 03:09] VITALS: BP 96/46; PULSE 81; RESP 16; TEMP 36.8; O2SAT 93
[2023-03-16] MEDS: acetaminophen 1,000 MG/100 ML PIGGYBACK 400 MG IV (05:23)
[2023-03-16 05:27] VITALS: BP 104/59
[2023-03-16 06:12] LABS: Basophils % 0.1 %; Hematocrit 32.1 % (37-53); Lymphocytes # 1.6 10^3/uL (0.8-4.8); Lymphocytes % 14.3 %; Mean Corpuscular Hemoglobin 30.3 pg (27-33); Mean Corpuscular Volume 91.7 fl (82-101); Mean Platelet Volume 8.9 fL (7.4-10.4); Monocytes # 0.8 10^3/uL (0.2-0.9); Neutrophils # 8.97 10^3/uL (1.8-7.7); Neutrophils % 78.3 %; Nucleated Red Blood Cells % 0 %; Platelet Count 220 10^3/cmm (157-399); Red Cell Distribution Width 12.1 % (12.1-15.1); White Blood Count 11.46 10^3/uL (3.29-11.43)
[2023-03-16 06:21] LABS: Glucose Point of Care 212 mg/dL (70-110)
[2023-03-16] MEDS: ceFAZolin 2,000 MG in sodium chloride 0.9% (plus) 50 ML 100 MG IV (06:29)
[2023-03-16 06:32] LABS: Anion Gap 15.8 (5-19); Blood Urea Nitrogen 22 mg/dL (8-23); Calcium 8.1 mg/dL (8.5-10.5); Carbon Dioxide 26 mmol/L (22-29); Chloride 98 mmol/L (98-107); Glomerular Filtration Rate 54.6 mL/min (90-130); Glucose 201 mg/dL (65-115); Osmolality Calculated 291 mOsm/kg (285-295); Potassium 3.8 mmol/L (3.5-5.1); Sodium 136 mmol/L (136-145)
[2023-03-16] MEDS: TRAMadol 50 mg Tablet PO ×2 (06:41→12:45)
[2023-03-16 07:38] VITALS: BP 115/58; PULSE 78; RESP 17; TEMP 36.8; O2SAT 97
[2023-03-16] MEDS: iron polysaccharide complex 150 mg Capsule PO (08:23)
[2023-03-16] MEDS: calcium carbonate 500 mg Chew Tablet 1000 MG PO (08:23)
[2023-03-16] MEDS: insulin lispro 100 unit/1 mL SUBCUT ×2 (08:23→11:23)
[2023-03-16] MEDS: duloxetine 60 mg Capsule 120 MG PO (08:24)
[2023-03-16] MEDS: atorvastatin 40 mg Tablet 80 MG PO (08:24)
[2023-03-16] MEDS: metformin 500 mg Tablet PO (08:24)
[2023-03-16] MEDS: sennosides-docusate Tablet 2 TAB PO (08:24)
[2023-03-16] MEDS: cholecalciferol (vitamin D3) 1,000 unit Tablet 1000 UNIT PO (08:24)
[2023-03-16] MEDS: multivitamin therapeutic Tablet 1 TAB PO (08:25)
[2023-03-16] MEDS: aspirin 325 mg EC Tablet PO (08:25)
[2023-03-16] MEDS: chlorhexidine gluconate 0.12% Btl 473 mL 30 ML MUCOUS MEM ×2 (08:28→12:45)
[2023-03-16] MEDS: insulin glargine 100 units/1 mL 80 UNIT SUBCUT (08:57)
[2023-03-16 11:04] LABS: Glucose Point of Care 232 mg/dL (70-110)
[2023-03-16] MEDS: CELEcoxib 200 mg Capsule PO (11:23)
[2023-03-16 11:49] VITALS: BP 122/69; PULSE 79; RESP 18; TEMP 36.4; O2SAT 96
--- NOTE | 2023-03-16 12:59 | PC.SOCIAL ---
IMM Update pg 2 of IMM not updated @ this time as patient is currently in observation status.
--- NOTE | 2023-03-16 14:04 | P.DS_ITS ---
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 A size 4 Accolade II 127? neck angle hip stem with a size 28 mm x +0 mm femoral head and a jewish MDM X3 insert size 42E (2) Primary osteoarthritis of right hip: Status: Acute (3) Contracture of adductor muscle of hip: Status: Acute (4) Flexion contracture of right hip: Status: Acute Reason for Visit Reason for Visit: 67675 M16.0 Brief History: This is a 72-year-old gentleman who presented to my office with complaints of severe right hip pain.? While sitting in his chair, he had significant pain, ho wever, when he bears weight, the patient's pain level became much higher.? The hip pain interfered with his activities of daily living.? He also was beginning to develop numbness and tingling secondary to the way that he walked.? In the office, patient was evaluated.? Questions were asked and answered.? Consents were signed. Hospital Course Hospital Course This 72-year-old gentleman underwent same-day surgery for right total hip arthroplasty. He had very significant limitation in range of motion even under anesthesia and severe adductor contracture. The procedure was well-tolerated, but he did have significant discomfort on the floor. He was changed from oxycodone to hydrocodone and did much better. On the first postoperative day, patient's pain management had improved significantly. He felt ready to be discharged home and therefore plans were made for this. Patient is in agreement with the discharge. He will follow-up in the office as scheduled. His dressing was dry and intact with ecchymosis as anticipated. He has no evidence of DVT. Physical Exam Const: COMMON NORMALS: no acute distress, average body habitus, patient oriented x3 and alert GENERAL APPEARANCE: cooperative and comfortable ORIENTATION/CONSCIOUSNESS: Yes awake HENMT: COMMON NORMALS: normocephalic and atraumatic HEAD & SCALP: normocephalic and atraumatic Eye: GENERAL EYE: appearance normal, both eyes and all related structures Chest: COMMONS NORMALS: normal inspection of the chest Resp: COMMON NORMALS: normal respiratory effort EFFORT & INSPECTION: Yes able to speak in complete sentences and Yes symmetric chest movement Extremity: RIGHT LOWER EXTREMITY: Yes hip joint Right hip: Yes inspection (Ecchymosis as anticipated.), Yes palpation (Minimal discomfort.), Yes ROM (Not evaluated.) and Yes neurovascular exam (Intact with no evidence of DVT.) Neuro: COMMON NORMALS: patient oriented x3 SENSORIUM/ORIENTATION: Yes alert Psych: COMMON NORMALS: mental status grossly normal APPEARANCE: Yes grossly normal ATTITUDE: Yes calm and Yes engaged ATTENTION/CONCENTRATION: Yes attention grossly intact Skin: COMMON NORMALS: no rashes or lesions noted GENERAL SKIN EXAM: no rashes or lesions noted Urinary Catheter Management: Gonzalez: Cath Placed During This Visit: yes, but has since been removed by the nurse Reason for Continuing Indwelling Catheter: Decision to DC Catheter Urinary Catheter Date of Insertion: 03/15/23 Urinary Catheter Time of Insertion: 11:50 Date Urinary Catheter Removed: 03/16/23 Time Urinary Catheter Discontinued: 06:30 Discharge Data Studies Completed and Pending Completed Studies During Hospitalization Category Date Time Status XR pelvis 1-2V* [id number] Routine Exams 03/15/23 14:52 Completed Laboratory Results WBC 11.46 10^3/uL (3.29-11.43) H 03/16/23 05:35 RBC 3.50 10^6/uL (3.85-5.65) L 03/16/23 05:35 Hgb 10.60 g/dL (11.27-16.99) L 03/16/23 05:35 Hct 32.1 % (37-53) L 03/16/23 05:35 MCV 91.7 fl (82-101) 03/16/23 05:35 MCH 30.3 pg (27-33) 03/16/23 05:35 MCHC 33.0 g/dL (30-55) 03/16/23 05:35 RDW 12.1 % (12.1-15.1) 03/16/23 05:35 Plt Count 220 10^3/cmm (157-399) 03/16/23 05:35 MPV 8.9 fL (7.4-10.4) 03/16/23 05:35 Neut % (Auto) 78.3 % 03/16/23 05:35 Lymph % (Auto) 14.3 % 03/16/23 05:35 [place] % (Auto) 7.0 % 03/16/23 05:35 Eos % (Auto) 0.0 % 03/16/23 05:35 Baso % (Auto) 0.1 % 03/16/23 05:35 Neut # (Auto) 8.97 10^3/uL (1.8-7.7) H 03/16/23 05:35 Lymph # (Auto) 1.6 10^3/uL (0.8-4.8) 03/16/23 05:35 [place] # (Auto) 0.8 10^3/uL (0.2-0.9) 03/16/23 05:35 Eos # (Auto) 0.0 10^3/uL (0.0-0.8) 03/16/23 05:35 Baso # (Auto) 0.0 10^3/uL (0.0-0.1) 03/16/23 05:35 Nucleated RBC % (auto) 0 % 03/16/23 05:35 Nucleated RBCs # 0.0 /100WBC 03/16/23 05:35 Sodium 136 mmol/L (136-145) 03/16/23 05:35 Potassium 3.8 mmol/L (3.5-5.1) 03/16/23 05:35 Chloride 98 mmol/L (98-107) 03/16/23 05:35 Carbon Dioxide 26 mmol/L (22-29) 03/16/23 05:35 Anion Gap 15.8 (5-19) 03/16/23 05:35 BUN 22 mg/dL (8-23) 03/16/23 05:35 Creatinine 1.3 mg/dL (0.7-1.2) H 03/16/23 05:35 GFR Calculation 54.6 mL/min (90-130) L 03/16/23 05:35 Glucose 201 mg/dL (65-115) H 03/16/23 05:35 POC Glucose 232 mg/dL (70-110) H 03/16/23 10:50 Calculated Osmolality 291 mOsm/kg (285-295) 03/16/23 05:35 Calcium 8.1 mg/dL (8.5-10.5) L 03/16/23 05:35 Vitals Last Vital Signs Temp 97.6 F 03/16/23 11:49 Pulse 79 03/16/23 11:49 Resp 18 03/16/23 11:49 BP 122/69 03/16/23 11:49 Pulse Ox 96 03/16/23 11:49 O2 Del Method Room Air 03/16/23 11:49 O2 Flow Rate 2 03/15/23 16:50 Discharge Plan Discharge Patient Disposition: Home Health Service Condition: Stable Prescriptions: New losartan 50 mg Tablet 100 mg PO DAILY Qty: 0 0RF hydrocodone-acetaminophen 10-325 mg Tablet 1 tab PO Q4H PRN (Reason: Moderate Pain) 7 Days Qty: 30 0RF aspirin 325 mg Tablet,Delayed Release (Dr/Ec) 325 mg PO DAILY 30 Days Qty: 0 0RF Continued (DME) insulin syringe-needle U-100 [[facility] Syringes] 0.3 mL 30 gauge x 5/16 syringe See Rx Instructions .Route Qty: 100 1RF Rx Instructions: As directed insulin lispro [Humalog KwikPen Insulin] 100 unit/mL insulin pen See Rx Instructions SUBCUT BID Qty: 135 2RF Rx Instructions: 50 U TID subcut daily with meals sliding scale 340 B sildenafil (pulm.hypertension) 20 mg tablet See Rx Instructions PO .COMPLEX Qty: 30 1RF Rx Instructions: orally; Take 1-5 pills 1 hour before sexual activity. Take on an empty stomach Levemir FlexTouch U100 Insulin 100 unit/mL (3 mL) insulin pen 80 unit SUBCUT DAILY Rx Instructions: Please dispense needle tips as well tramadol 50 mg tablet 50 mg PO TID PRN (Reason: pain) Qty: 90 3RF testosterone cypionate 200 mg/mL oil 200 mg SUBCUT .q 14 days Qty: 2 5RF trazodone 100 mg tablet 400 mg PO .HS PRN (Reason: insomnia) Qty: 360 1RF betamethasone, augmented 0.05 % ointment 1 applic topical BID PRN (Reason: skin irritation) Qty: 50 0RF metformin 500 mg tablet 500 mg PO BID Qty: 60 0RF Invokana 100 mg tablet 100 mg PO DAILY Qty: 30 0RF atorvastatin 80 mg tablet 80 mg PO DAILY Rx Instructions: TAKE 1 TABLET BY MOUTH EVERY DAY valsartan-hydrochlorothiazide 160-25 mg tablet 1 tab PO DAILY Rx Instructions: TAKE 1 TABLET BY MOUTH EVERY DAY duloxetine 60 mg capsule,delayed release(DR/EC) 120 mg PO DAILY Rx Instructions: TAKE 2 CAPSULES BY MOUTH EVERY DAY Discharge Orders: Discharge Order (Routine); Ordered 03/16/23 Ordered By: Nicole Villa Referrals: [facility] [Other] Nicole Villa MD [Physician] - 03/28/23 9:30 am Discharge Diet: Advance as tolerated, Usual diet and As Directed Discharge Activity: Limit activity as instructed, Use walker/crutches as instructed and As per PT/OT instructions Patient Instructions: Hydrocodone/Acetaminophen (By mouth), Aspirin (By mouth), Losartan (By mouth) (Cozaar), Precautions after Total Joint Replacement Surgery (ED), Total Hip Replacement (DC), Hip Abduction Pillow (DC), Joint Replacement Stoplight Activity Restrictions/Additional Instructions: Weightbearing as tolerated, posterior hip precautions, ambulation and gait training and strengthening per physical therapy. Keep your clear plastic dressing in place. You may shower with this in place. Do not sit or submerge your hip in water. Discharge Attestations Time Spent in Discharge Care*: greater than 30 min Specific Discharge Activities: educating patient, documenting/other paperwork and evaluating patient/reviewing data Quality Metrics Clinical Quality Measures [ No reported AMI, CVA or VTE this stay] Coding Level of Care Code Acute Code for Chg Fwd Diagnoses S/P total right hip arthroplasty Z96.641 Primary osteoarthritis of right hip M16.11 Contracture of adductor muscle of hip M62.459 Flexion contracture of right hip M24.551
[2023-03-16 15:23] VITALS: BP 107/61; PULSE 84; RESP 17; TEMP 36.8; O2SAT 95
[2023-03-16 16:05] VITALS: BP 107/61; PULSE 84; RESP 17; TEMP 36.8; O2SAT 95
== END 2023-03-16 16:06 | disposition home health service (06) ==
LOC: MEDSURG 21:57
PROVIDERS: Admitting Provider Specialist; PCP Family Medicine; Visit Provider Specialist
PROC: (CPT 27130; principal; 2023-03-15 10:35)
DX: M16.11 Unilateral primary osteoarthritis, right hip (principal); M24.551 Contracture, right hip; E11.9 Type 2 diabetes mellitus without complications; E78.5 Hyperlipidemia, unspecified; Z79.4 Long term (current) use of insulin; Z79.84 Long term (current) use of oral hypoglycemic drugs; I10 Essential (primary) hypertension; Z86.16 Personal history of COVID-19
CPT/HCPCS: 27130; 36415; 36416; 51702; 72170; 80048; 82962; 85025; 96372; 97110; 97116; 97161; 97166; C1776; G0378; J0131; J0690; J1100; J1170; J1815; J2250; J2405; J2704; J2710; J3010; J3370; J3490; J7030

== ENCOUNTER → 2023-03-28 09:09 | Outpatient (BNVA) | payer MEDICARE, SELFPAY | PROVIDERS: PCP Family Medicine; Visit Provider Nurse Practitioner | DX: Z96.641 Presence of right artificial hip joint (principal); M16.11 Unilateral primary osteoarthritis, right hip | CPT/HCPCS: 73502; 99024 ==

== ENCOUNTER → 2023-04-09 10:23 | Outpatient (BNVA) | payer MEDICARE, SELFPAY | PROVIDERS: PCP Family Medicine; Visit Provider Family Medicine | DX: E11.9 Type 2 diabetes mellitus without complications (principal) | CPT/HCPCS: 80048 ==

== ENCOUNTER → 2023-04-26 10:51 | Outpatient (BNVA) | payer MEDICARE, SELFPAY | PROVIDERS: PCP Family Medicine; Visit Provider Specialist | DX: M16.11 Unilateral primary osteoarthritis, right hip (principal); Z96.641 Presence of right artificial hip joint | CPT/HCPCS: 73502; 99024 ==

== ENCOUNTER → 2023-05-28 08:32 | Outpatient (BNVA) | payer MEDICARE, SELFPAY | PROVIDERS: PCP Family Medicine; Visit Provider Podiatrist Foot & Ankle Surgery | DX: B35.1 Tinea unguium (principal); G62.9 Polyneuropathy, unspecified; E11.42 Type 2 diabetes mellitus with diabetic polyneuropathy; Z79.4 Long term (current) use of insulin; Z79.84 Long term (current) use of oral hypoglycemic drugs | CPT/HCPCS: 11721 ==

== ENCOUNTER → 2023-06-12 09:26 | Outpatient (BNVA) | payer MEDICARE, SELFPAY | PROVIDERS: PCP Family Medicine; Visit Provider Family Medicine | DX: Z13.6 Encounter for screening for cardiovascular disorders (principal); E11.9 Type 2 diabetes mellitus without complications; Z79.4 Long term (current) use of insulin | CPT/HCPCS: 80053; 83036 ==

== ENCOUNTER → 2023-06-27 10:13 | Outpatient (BNVA) | payer MEDICARE, SELFPAY | PROVIDERS: PCP Family Medicine; Visit Provider Specialist | DX: M16.11 Unilateral primary osteoarthritis, right hip (principal); Z96.641 Presence of right artificial hip joint | CPT/HCPCS: 73502; 99213 ==

== ENCOUNTER → 2023-07-30 08:35 | Outpatient (BNVA) | payer MEDICARE, SELFPAY | PROVIDERS: PCP Family Medicine; Visit Provider Podiatrist Foot & Ankle Surgery | DX: B35.1 Tinea unguium (principal); G62.9 Polyneuropathy, unspecified; E11.42 Type 2 diabetes mellitus with diabetic polyneuropathy; Z79.4 Long term (current) use of insulin; Z79.84 Long term (current) use of oral hypoglycemic drugs | CPT/HCPCS: 11721 ==

== ENCOUNTER → 2023-12-04 11:41 | Outpatient (BNVA) | payer MEDICARE, SELFPAY | DX: E11.9 Type 2 diabetes mellitus without complications (principal); E78.5 Hyperlipidemia, unspecified; Z79.4 Long term (current) use of insulin | CPT/HCPCS: 80053; 80061; 83036 ==

== ENCOUNTER → 2024-03-08 10:16 | Outpatient (BNVA) | payer MEDICARE, SELFPAY | PROVIDERS: Visit Provider Emergency Medicine | DX: M19.071 Primary osteoarthritis, right ankle and foot (principal) | CPT/HCPCS: 73630 ==

== ENCOUNTER → 2024-03-10 10:24 | Outpatient (BNVA) | payer MEDICARE, SELFPAY | DX: E11.9 Type 2 diabetes mellitus without complications (principal) | CPT/HCPCS: 80053; 83036; 84550 ==

== ENCOUNTER → 2024-03-24 11:29 | Outpatient (BNVA) | payer MEDICARE, SELFPAY | DX: L03.031 Cellulitis of right toe (principal); M19.071 Primary osteoarthritis, right ankle and foot | CPT/HCPCS: 73630 ==

== ENCOUNTER → 2024-07-03 09:54 | Outpatient (BNVA) | payer MEDICARE, SELFPAY | PROVIDERS: PCP Family Medicine; Visit Provider Family Medicine | DX: E11.9 Type 2 diabetes mellitus without complications (principal); R35.1 Nocturia; Z79.4 Long term (current) use of insulin | CPT/HCPCS: 80053; 82043; 83036; 84153; 85025 ==

== ENCOUNTER → 2024-11-27 08:33 | Outpatient (BNVA) | payer MEDICARE, SELFPAY | PROVIDERS: PCP Family Medicine; Visit Provider Family Medicine | DX: E11.9 Type 2 diabetes mellitus without complications (principal); Z79.4 Long term (current) use of insulin | CPT/HCPCS: 80053; 80061; 83036; 83721 ==

== ENCOUNTER → 2025-02-24 08:50 | Outpatient (BNVA) | payer MEDICARE, SELFPAY | PROVIDERS: PCP Family Medicine; Visit Provider Family Medicine | DX: E11.42 Type 2 diabetes mellitus with diabetic polyneuropathy (principal); Z79.4 Long term (current) use of insulin | CPT/HCPCS: 80053; 80061; 83036 ==